=== PATIENT | female | born 1995 | race Caucasian/White ===

== ENCOUNTER 2016-11-15 08:39 | Emergency (ER) | payer OTHER ==
[2016-11-15 08:46] VITALS: BP 133/80; PULSE 69; TEMP 98.5; BMI 27.0
--- NOTE | 2016-11-15 09:25 | PDOC ---
History of Present Illness - General Chief Complaint: Allergic Reaction Stated Complaint: ALLERGIES Time Seen by Provider: 11/15/16 09:10 History Source: Patient Exam Limitations: No Limitations - History of Present Illness Initial Comments: 11/15/16 09:19 CC seasonal allergies bad this week; no better Past History - Past Medical History Allergies/Adverse Reactions: Allergies Allergy/AdvReac Type Severity Reaction Status Date / Time No Known Allergies Allergy Verified 11/15/16 08:44 Home Medications: Ambulatory Orders NK [No Known Home Medication] 11/15/16 Other medical history: denies. - Psycho/Social/Smoking Cessation Hx Anxiety: No Suicidal Ideation: No Smoking History: Never smoked Hx Alcohol Use: No Drug/Substance Use Hx: No Substance Use Type: None Review of Systems - Review of Systems Constitutional: No: Chills, Fever, Malaise HEENTM: No: Symptoms Reported Respiratory: No: Symptoms reported, Cough Cardiac (ROS): No: Symptoms Reported ABD/GI: No: Symptoms Reported : No: Symptoms Reported Musculoskeletal: No: Symptoms Reported *Physical Exam - Vital Signs Last Vital Signs Temp Pulse Resp BP Pulse Ox 98.5 F 69 18 133/80 99 11/15/16 08:43 11/15/16 08:43 11/15/16 08:43 11/15/16 08:43 11/15/16 08:43 - Physical Exam General Appearance: Yes: Appropriately Dressed. No: Apparent Distress HEENT: positive: TMs Normal, Pharynx Normal Neck: positive: Supple. negative: Tender, Rigid, Lymphadenopathy (R), Lymphadenopathy (L) Respiratory/Chest: positive: Lungs Clear Cardiovascular: negative: Regular Rhythm, Regular Rate Female Pelvic Exam: negative: normal external exam, cervical os closed Gastrointestinal/Abdominal: negative: Normal Bowel Sounds *DC/Admit/Observation/Transfer Diagnosis at time of Disposition: Seasonal allergic rhinitis Qualifiers: Allergic rhinitis trigger: pollen Qualified Code(s): J30.1 - Allergic rhinitis due to pollen - Discharge Dispostion Disposition: HOME Condition at time of disposition: Stable Admit: No - Patient Instructions Additional Instructions: please see local MD next week if no better
== END 2016-11-15 09:58 | disposition home or self-care (01) ==
LOC: JERFT 08:39
DX: J30.1 Allergic rhinitis due to pollen (principal)
CPT/HCPCS: 99281-25